=== PATIENT | female | born 1970 | race Caucasian/White ===

== ENCOUNTER → 2022-10-13 | Outpatient (CLI) | payer OTHER ==
--- NOTE | 2022-10-13 11:32 | Diagnostic Imaging Report ---
INDICATION: Abdominal distention x1 week. Abdomen series PA chest, supine and upright abdominal images are obtained. FINDINGS: Lungs are clear. There are no effusions or pneumothoraces. There is no intraperitoneal free air. Bowel gas pattern is normal. There are no pathologic masses or calcifications. IMPRESSION: Negative abdomen series. Dictated by: Dictated on workstation # [id number]
== END ==
LOC: RAD 10:51
PROVIDERS: ATTEND Nurse Practitioner Women's Health
DX: R14.0 Abdominal distension (gaseous) (principal)
CPT/HCPCS: 74022

== ENCOUNTER → 2022-10-26 | Outpatient (CLI) | payer OTHER ==
--- NOTE | 2022-10-26 17:20 | Diagnostic Imaging Report ---
PROCEDURE: Pelvic complete, transabdominal and transvaginal sonogram. Limited pelvic Doppler. TECHNIQUE: Multiple real-time grayscale images were obtained of the pelvis in various projections transabdominally and transvaginally. Limited pelvic duplex images were obtained. HISTORY: Bloating, pain, history of endometrial ablation. COMPARISON: None available. FINDINGS: Uterus: The uterus is anteverted and measures 9.3 x 7.3 x 5.4 cm. There is anterior intramural uterine fibroid measuring up to 2.3 cm. Additional 2.8 cm intramural or submucosal uterine fibroid. Endometrium: The endometrium is poorly visualized secondary to poor ultrasound penetration and overlying fibroids. Adnexa: The left ovary is nonvisualized secondary to overlying bowel gas. The right ovary is unremarkable. The right ovary measures 2.5 x 1.5 x 2.8 cm. Duplex images reveal normal vascular flow to the right ovary. Other: There is no free fluid within the pelvis. IMPRESSION: 1. Likely intramural and submucosal intrauterine fibroids measuring up to 2.8 cm. 2. Unremarkable appearance of the right ovary. Left ovary is nonvisualized. Dictated by: Dictated on workstation # [id number]
== END ==
LOC: RAD 15:15
PROVIDERS: ATTEND Nurse Practitioner Women's Health
DX: D25.0 Submucous leiomyoma of uterus (principal); D25.1 Intramural leiomyoma of uterus
CPT/HCPCS: 76830; 76856